=== PATIENT | female | born 1980 | race Caucasian/White ===

== ENCOUNTER → 2016-05-05 | Outpatient (CLI) | payer OTHER ==
[2016-05-05 12:26] LABS: BASO % 0.5 % (0.0-1.0); EOS # 0.1 K/mm3 (0.0-0.50); EOS % 1.3 % (0.0-3.0); LYMPH # 1.8 K/mm3 (1.5-4.5); LYMPH % 16.5 % (24.0-44.0); MEAN CORPUSCULAR HEMOGLOBIN 29.5 pg (27.0-33.0); MEAN CORPUSCULAR HGB CONC 33.7 g/dl (32.0-36.5); MEAN CORPUSCULAR VOLUME 87.7 fl (80.0-96.0); MONO # 0.7 K/mm3 (0.0-0.8); MONO % 7.1 % (0.0-5.0); NEUTROPHILS # 7.2 K/mm3 (1.8-7.7); NEUTROPHILS % 73.3 % (36.0-66.0); RED CELL DISTRIBUTION WIDTH 13.1 % (11.5-14.5); WHITE BLOOD COUNT 9.8 K/mm3 (4.0-10.0)
[2016-05-05 12:58] LABS: ALBUMIN 3.8 GM/DL (3.2-5.2); ALBUMIN/GLOBULIN RATIO 1.19 (1.00-1.93); ALKALINE PHOSPHATASE 92 U/L (45-117); ALT/SGPT 19 U/L (12-78); ANION GAP 10 MEQ/L (8-16); AST/SGOT 13 U/L (15-37); BILIRUBIN,TOTAL 0.2 MG/DL (0.2-1.0); BLOOD UREA NITROGEN 14 MG/DL (7-18); CALCIUM LEVEL 8.8 MG/DL (8.5-10.1); CARBON DIOXIDE LEVEL 27 MEQ/L (21-32); CHLORIDE LEVEL 107 MEQ/L (98-107); CHOLESTEROL LEVEL 126 MG/DL (<200); CREATININE FOR GFR 0.76 MG/DL (0.55-1.02); GLOMERULAR FILTRATION RATE > 60.0 (>60); GLUCOSE, FASTING 103 MG/DL (70-105); POTASSIUM SERUM 4.1 MEQ/L (3.5-5.1); SODIUM LEVEL 144 MEQ/L (136-145); TRIGLYCERIDES LEVEL 123 MG/DL (<150)
== END ==
LOC: M LAB 12:13
PROVIDERS: ATTEND Physician Assistant Medical
DX: Z00.00 Encounter for general adult medical examination without abnormal findings (principal)

== ENCOUNTER → 2016-05-25 | Outpatient (CLI) | payer OTHER ==
--- NOTE | 2016-05-25 11:00 | REP ---
Pelvic ultrasound: History: Left lower quadrant pain, left ovarian cyst. Family history of ovarian cancer. Comparison sonography February 28, 2015. This showed a 2.7 cm cystic area in the left ovary. Findings: Uterine dimensions are 7.9 x 4.1 x 4.9 cm. Endometrial echo is 0.6 cm thick. Bladder june are smooth. No free fluid is seen. There are tiny Nabothian cysts in the cervix. The left ovary has overall dimensions of 4.1 x 3.5 x 3.6 cm. Its Doppler flow was normal and resistive index 0.72. There is a 3.1 x 2.1 x 2.3 cm cyst containing a septation. There is a small somewhat nodular echogenic focus along one wall of the cyst. This echogenic focus measures 4 mm in greatest diameter. The cyst is otherwise simple. There are other small follicle cysts in the left ovary. Right ovary is normal measuring 3.4 x 2.2 x 1.8 cm. Subcentimeter follicle cysts are seen in the right ovary. Impression: 3.1 cm complex cystic lesion left ovary. Otherwise negative pelvic sonography.
== END ==
LOC: M WHC 08:30
PROVIDERS: ATTEND Nurse Practitioner Women's Health
DX: N83.202 Unspecified ovarian cyst, left side (principal)

== ENCOUNTER 2016-10-07 10:46 | Emergency (ER) | payer OTHER ==
[~2016-10-07] VITALS: Ht 177.8 cm; Wt 101.4 kg
[2016-10-07 10:47] VITALS: BP 148/88
[2016-10-07] MEDS ORDERED: PREVTAB2 PO (10:52)
[2016-10-07] MEDS ORDERED: CYCL10TA PO (11:29)
[2016-10-07] MEDS ORDERED: PRED20TA PO (11:29)
== END 2016-10-07 11:34 | disposition home or self-care (01) ==
LOC: M ED 10:46
DX: M46.1 Sacroiliitis, not elsewhere classified (principal); M54.32 Sciatica, left side; N83.209 Unspecified ovarian cyst, unspecified side; Z79.899 Other long term (current) drug therapy

== ENCOUNTER 2017-01-05 09:58 | Emergency (ER) | payer OTHER ==
[~2017-01-05] VITALS: Ht 177.8 cm; Wt 101.4 kg
[~2017-01-05 09:58] MED LIST: CYCL10TA PO; PRED20TA PO; PREVTAB2 PO
[2017-01-05 10:05] VITALS: BP 148/85
== END 2017-01-05 11:40 | disposition home or self-care (01) ==
LOC: M ED 09:58
DX: S30.861A Insect bite (nonvenomous) of abdominal wall, initial encounter (principal); X58.XXXA Exposure to other specified factors, initial encounter; Y92.89 Other specified places as the place of occurrence of the external cause; Y93.89 Activity, other specified; Y99.8 Other external cause status; Z79.3 Long term (current) use of hormonal contraceptives

== ENCOUNTER 2017-03-25 22:23 | Emergency (ER) | payer OTHER ==
[2017-03-26] MEDS: CEPHALEXIN 500 MG CAP PO (02:26)
== END 2017-03-26 02:34 | disposition home or self-care (01) ==
LOC: M ED 22:23
DX: L03.115 Cellulitis of right lower limb (principal); Z79.3 Long term (current) use of hormonal contraceptives
CPT/HCPCS: 73620

== ENCOUNTER → 2017-05-17 | Outpatient (REF) | payer OTHER | LOC: M SFHCWAGY 13:29 | DX: Z12.4 Encounter for screening for malignant neoplasm of cervix (principal) ==

== ENCOUNTER → 2017-06-14 | Outpatient (CLI) | payer OTHER ==
[2017-06-14 09:52] LABS: BASO # 0.1 10^3/uL (0.0-0.2); BASO % 0.7 % (0.0-1.0); EOS # 0.1 10^3/uL (0.0-0.50); EOS % 1.1 % (0.0-3.0); HEMATOCRIT 38.9 % (36.0-47.0); HEMOGLOBIN 12.8 g/dl (12.0-15.5); IMMATURE GRANULOCYTE % 0.3 % (0-3.0); LYMPH # 1.7 10^3/uL (1.5-4.5); LYMPH % 19.2 % (24.0-44.0); MEAN CORPUSCULAR HEMOGLOBIN 28.3 pg (27.0-33.0); MEAN CORPUSCULAR HGB CONC 32.9 g/dl (32.0-36.5); MEAN CORPUSCULAR VOLUME 86.1 fl (80.0-96.0); MONO # 0.7 10^3/uL (0.0-0.8); MONO % 7.6 % (0.0-5.0); NEUTROPHILS # 6.4 10^3/uL (1.8-7.7); NEUTROPHILS % 71.1 % (36.0-66.0); PLATELET COUNT, AUTOMATED 345 10^3/uL (150-450); RED BLOOD COUNT 4.52 10^6/uL (4.00-5.40); RED CELL DISTRIBUTION WIDTH 12.8 % (11.5-14.5)
[2017-06-14 10:15] LABS: ESTIMATED AVERAGE GLUCOSE 100 MG/DL (60-110); HEMOGLOBIN A1c 5.1 %
[2017-06-14 10:25] LABS: ALBUMIN 3.6 GM/DL (3.2-5.2); ALKALINE PHOSPHATASE 78 U/L (45-117); ALT/SGPT 24 U/L (12-78); ANION GAP 4 MEQ/L (8-16); AST/SGOT 14 U/L (7-37); BILIRUBIN,TOTAL 0.3 MG/DL (0.2-1.0); BLOOD UREA NITROGEN 10 MG/DL (7-18); CALCIUM LEVEL 8.6 MG/DL (8.5-10.1); CARBON DIOXIDE LEVEL 28 MEQ/L (21-32); CHLORIDE LEVEL 109 MEQ/L (98-107); CHOLESTEROL LEVEL 117 MG/DL (<200); CHOLESTEROL RISK RATIO 2.543 (<5); CREATININE FOR GFR 0.58 MG/DL (0.55-1.30); FREE T4 1.01 NG/DL (0.76-1.46); GLOMERULAR FILTRATION RATE > 60.0 (>60); GLUCOSE, FASTING 83 MG/DL (70-100); HDL CHOLESTEROL 46 MG/DL (>40); NON-HDL-C 71 MG/DL; POTASSIUM SERUM 4.6 MEQ/L (3.5-5.1); SODIUM LEVEL 141 MEQ/L (136-145); TOTAL PROTEIN 7.2 GM/DL (6.4-8.2); TRIGLYCERIDES LEVEL 70 MG/DL (<150)
[2017-06-14 10:27] LABS: TOTAL 25(OH) VITAMIN D 24.6 NG/ML (30.0-100.0)
== END ==
LOC: M WUC 08:14
DX: E55.9 Vitamin D deficiency, unspecified (principal); F41.1 Generalized anxiety disorder; Z79.899 Other long term (current) drug therapy
CPT/HCPCS: 84443

== ENCOUNTER → 2018-05-13 | Outpatient (REF) | payer OTHER ==
[~2018-05-13] MED LIST changes: +HYDR-3363; +IBUP-1114 PO; +KEFL500C17 PO; +NAPR-885 PO
== END ==
LOC: M SFHCLERA 10:04
PROVIDERS: ATTEND Physician Assistant Medical
DX: J02.9 Acute pharyngitis, unspecified (principal)

== ENCOUNTER → 2018-08-01 | Outpatient (CLI) | payer OTHER | LOC: M SMT 11:03 | PROVIDERS: ATTEND Specialist | DX: Z13.79 Encounter for other screening for genetic and chromosomal anomalies (principal) ==

== ENCOUNTER 2018-11-14 10:58 | Day surgery (SDC) | payer OTHER ==
[~2018-11-14] VITALS: Ht 177.8 cm; Wt 109.3 kg
[~2018-11-14 10:58] MED LIST changes: +HERBAL SUPPLEMENT PO; +LIDOCAINE 1% MDV 20ML VIAL SQ PRN; +LR 1,000 ML IV ONE
[2018-11-14 11:42] LABS: HEMATOCRIT 39.9 % (36.0-47.0); HEMOGLOBIN 12.9 g/dl (12.0-15.5); MEAN CORPUSCULAR HEMOGLOBIN 28.4 pg (27.0-33.0); MEAN CORPUSCULAR HGB CONC 32.3 g/dl (32.0-36.5); MEAN CORPUSCULAR VOLUME 87.7 fl (80.0-96.0); PLATELET COUNT, AUTOMATED 356 10^3/uL (150-450); RED BLOOD COUNT 4.55 10^6/uL (4.00-5.40); WHITE BLOOD COUNT 9.5 10^3/uL (4.0-10.0)
[2018-11-14 11:46] LABS: URINE PREG TEST NEGATIVE (NEGATIVE)
[2018-11-14] MEDS ORDERED: MIDAZOLAM INJ 2 MG/2 ML VIAL (J2250) As Ordered ONE (12:20)
[2018-11-14] MEDS ORDERED: propofoL 200 MG/20 ML VIAL As Ordered ONE (12:20)
[2018-11-14] MEDS ORDERED: ROCURONIUM BROMIDE 50 MG/5 ML VIAL As Ordered ONE (12:20)
[2018-11-14] MEDS ORDERED: fentaNYL 100 MCG/2 ML INJECTION (J3010) As Ordered ONE ×2 (12:20→13:37)
[2018-11-14] MEDS ORDERED: LIDOCAINE 2% INJ 100 MG/5 ML SDV (FOR ANES.) As Ordered ONE (12:20)
[2018-11-14] MEDS ORDERED: BUPIVACAINE HCL 0.25% 30 ML VIAL As Ordered ONE (12:48)
[2018-11-14] MEDS ORDERED: OXYC1TAB23 PO (12:58)
[2018-11-14] MEDS ORDERED: METOCLOPRAMIDE INJ 10MG/2ML VIAL (J2765) As Ordered ONE (13:31)
[2018-11-14] MEDS ORDERED: KETOROLAC 60 MG/2 ML VIAL (J1885) As Ordered ONE (13:31)
[2018-11-14] MEDS ORDERED: SUGAMMADEX SODIUM 500 MG/5 ML VIAL (BRIDION) As Ordered ONE (13:31)
[2018-11-14] MEDS ORDERED: dexameTHASONE 4 MG/ML 1ML VIAL (J1100) As Ordered ONE (13:31)
[2018-11-14] MEDS ORDERED: ONDANSETRON 4MG/2ML VIAL (J2405) As Ordered ONE (13:31)
[2018-11-14] MEDS ORDERED: ONDANSETRON 4MG/2ML VIAL (J2405) IV PRN (14:30)
[2018-11-14] MEDS ORDERED: LR 1,000 ML IV SCH ×2 (14:30)
[2018-11-14] MEDS ORDERED: MEPERIDINE INJ 25 MG/ML VIAL (J2175) IV PRN (14:30)
[2018-11-14] MEDS ORDERED: fentaNYL 100 MCG/2 ML INJECTION (J3010) IV PRN (14:30)
[2018-11-14] MEDS ORDERED: PERCOCET 5MG/325MG TAB PO PRN ×2 (14:30)
[2018-11-14] MEDS ORDERED: METOCLOPRAMIDE INJ 10MG/2ML VIAL (J2765) IV PRN (14:30)
[2018-11-14 15:46] VITALS: BP 132/92
--- NOTE | 2018-11-25 19:17 | RO ---
DATE OF PROCEDURE: 11/14/2018 PREPROCEDURE DIAGNOSIS: Undesired fertility. POSTPROCEDURE DIAGNOSIS: Undesired fertility. PROCEDURE: Laparoscopic bilateral salpingectomy. SURGEON: Manuel Alvarado MD FRINGING MACHINE OPERATOR: ANESTHESIA: General endotracheal. ESTIMATED BLOOD LOSS: 10 mL URINE OUTPUT: 50 mL. FINDINGS: Normal pelvis including uterus, fallopian tubes and ovaries. DESCRIPTION OF PROCEDURE: The patient was taken to the operating room where general endotracheal anesthesia was induced. She was prepped and draped in a sterile fashion in the dorsal lithotomy position. The bladder was emptied with a catheter. A sponge stick was placed in the vagina to use as a manipulator. A periumbilical incision was made with a scalpel. A Veress needle was placed through this incision while tenting up on the skin of the abdomen. Intraabdominal location of the Veress needle was assessed with the use of a saline-filled syringe. A pneumoperitoneum was created. The Veress needle was removed. 5 mm trocar using Visiport was inserted through this incision. Two 5 mm ports were inserted under direct visualization without difficulty. A grasping instrument and Ligasure device were used to elevate the fallopian tubes, tube was then coagulated and incised along its broad ligament attachments. The tube was then excised near its origin. This was done on both sides. Both tubes were removed through the suprapubic ports. Good hemostasis was noted. The pneumoperitoneum was released. All instruments were removed. The skin was closed with #4-0 Monocryl subcuticular sutures. Sponge, instrument and needle counts were correct. [facility]
== END 2018-11-14 15:46 | disposition home or self-care (01) ==
LOC: M SDC 10:58
PROVIDERS: ATTEND Specialist
DX: Z30.2 Encounter for sterilization (principal); F41.9 Anxiety disorder, unspecified
CPT/HCPCS: 36415; 58661; 84703; 85027; 88302; J1100; J1885; J2250; J2405; J2765; J3010

== ENCOUNTER → 2019-01-17 | Outpatient (REF) | payer OTHER ==
[~2019-01-17] MED LIST changes: -LIDOCAINE 1% MDV 20ML VIAL SQ PRN; -LR 1,000 ML IV ONE; +OXYC1TAB23 PO
== END ==
LOC: M SFHCLERA 16:50
PROVIDERS: ATTEND Nurse Practitioner Family
DX: R53.81 Other malaise (principal)

== ENCOUNTER → 2020-03-02 | Outpatient (CLI) | payer OTHER ==
[~2020-03-02] MED LIST changes: +CYCL-707 PO; -CYCL10TA PO
== END ==
LOC: M LABSMTC 14:08
PROVIDERS: ATTEND Family Medicine
DX: Z20.828 Contact with and (suspected) exposure to other viral communicable diseases (principal)

== ENCOUNTER → 2020-05-09 | Outpatient (REF) | payer OTHER ==
[2020-05-09 17:39] LABS: BASO # 0.1 10^3/uL (0.0-0.2); BASO % 0.8 % (0.0-1.0); EOS # 0.2 10^3/uL (0.0-0.5); EOS % 2.1 % (0.0-3.0); HEMATOCRIT 39.8 % (36.0-47.0); HEMOGLOBIN 12.6 g/dl (12.0-15.5); LYMPH # 1.9 10^3/uL (1.5-5.0); LYMPH % 25.1 % (24.0-44.0); MEAN CORPUSCULAR HEMOGLOBIN 28.3 pg (27.0-33.0); MEAN CORPUSCULAR HGB CONC 31.7 g/dl (32.0-36.5); MEAN CORPUSCULAR VOLUME 89.2 fl (80.0-96.0); MONO # 0.6 10^3/uL (0.0-0.8); MONO % 8.4 % (2.0-8.0); NEUTROPHILS # 4.9 10^3/uL (1.5-8.5); NEUTROPHILS % 63.3 % (36.0-66.0); PLATELET COUNT, AUTOMATED 347 10^3/uL (150-450); RED BLOOD COUNT 4.46 10^6/uL (4.00-5.40); WHITE BLOOD COUNT 7.7 10^3/uL (4.0-10.0)
[2020-05-09 17:43] LABS: ALBUMIN 3.9 GM/DL (3.2-5.2); ALT/SGPT 25 U/L (12-78); BILIRUBIN,TOTAL 0.3 MG/DL (0.2-1.0); BLOOD UREA NITROGEN 11 MG/DL (7-18); CARBON DIOXIDE LEVEL 29 MEQ/L (21-32); CHLORIDE LEVEL 104 MEQ/L (98-107); CHOLESTEROL LEVEL 169 MG/DL (<200); CHOLESTEROL RISK RATIO 3.448 (<5); CREATININE FOR GFR 0.64 MG/DL (0.55-1.30); FREE T4 0.98 NG/DL (0.76-1.46); GLOMERULAR FILTRATION RATE > 60.0 (>60); GLUCOSE, FASTING 92 MG/DL (70-100); HDL CHOLESTEROL 49 MG/DL (>40); LDL CHOLESTEROL 102 MG/DL (<100); NON-HDL-C 120 MG/DL; POTASSIUM SERUM 4.7 MEQ/L (3.5-5.1); SODIUM LEVEL 139 MEQ/L (136-145); THYROGLOBULIN ANTIBODY 59.3 U/ML (<60.0); THYROID PEROXIDASE ANTIBODY 132.9 U/ML (<60.0); TOTAL 25(OH) VITAMIN D 18.8 NG/ML (30.0-100.0); TOTAL PROTEIN 7.5 GM/DL (6.4-8.2); TRIGLYCERIDES LEVEL 92 MG/DL (<150)
[2020-05-09 17:46] LABS: HEMOGLOBIN A1c 5.2 %
== END ==
LOC: M LAB REF 16:13
PROVIDERS: ATTEND Physician Assistant
DX: E04.1 Nontoxic single thyroid nodule (principal); E66.9 Obesity, unspecified; R53.83 Other fatigue; I10 Essential (primary) hypertension

== ENCOUNTER → 2020-08-01 | Outpatient (CLI) | payer OTHER ==
--- NOTE | 2020-08-02 04:39 | REP ---
INDICATION: NONTOXIC SINGLE THYROID NODULE COMPARISON: None. TECHNIQUE: Case scale and color evaluation of the thyroid gland using the linear high frequency transducer. FINDINGS: The thyroid gland is diffusely heterogeneous. Right lobe measures 4.3 x 1.5 x 1.5 cm without discrete nodule or cyst. Left lobe measures 4.5 x 1.5 x 1.4 cm and includes 1.6 x 1.3 x 1.0 cm complex lower pole isoechoic vascular nodule. Isthmus measures 4 mm in width. IMPRESSION: 1. 1.6 cm complex lower pole nodule in the left lobe. Finding is relatively indeterminate. FNA may be considered for definitive diagnosis as no prior examinations are available for comparison. <Electronically signed by Heraclio Dasilva > 08/02/20 [id number]
== END ==
LOC: M RAD 11:30
PROVIDERS: ATTEND Physician Assistant
DX: E04.1 Nontoxic single thyroid nodule (principal)

== ENCOUNTER → 2020-11-10 | Outpatient (REF) | payer OTHER | LOC: M LAB REF 19:10 | PROVIDERS: ATTEND Internal Medicine Endocrinology, Diabetes & Metabolism | DX: E04.1 Nontoxic single thyroid nodule (principal) ==

== ENCOUNTER → 2020-11-24 | Outpatient (CLI) | payer OTHER ==
[2020-11-24 13:55] LABS: FREE T4 1.09 NG/DL (0.76-1.46); THYROID STIMULATING HORMONE 1.65 uIU/ML (0.358-3.740)
== END ==
LOC: M WUC 09:15
PROVIDERS: ATTEND Internal Medicine Endocrinology, Diabetes & Metabolism
DX: E06.3 Autoimmune thyroiditis (principal)

== ENCOUNTER → 2021-05-22 | Outpatient (CLI) | payer OTHER ==
[2021-05-22 11:22] LABS: FREE T4 1.17 NG/DL (0.76-1.46); THYROID STIMULATING HORMONE 1.03 uIU/ML (0.358-3.740)
== END ==
LOC: M WUC 08:22
PROVIDERS: ATTEND Internal Medicine Endocrinology, Diabetes & Metabolism
DX: E04.1 Nontoxic single thyroid nodule (principal)

== ENCOUNTER 2021-11-23 16:40 | Emergency (ER) | payer OTHER ==
[~2021-11-23] VITALS: Ht 177.8 cm; Wt 121.1 kg
[2021-11-23] MEDS ORDERED: LEVO75TA4 (16:51)
[2021-11-23] MEDS ORDERED: SULF1TAB23 PO (20:28)
[2021-11-23 20:30] VITALS: BP 145/83
[2021-11-23] MEDS ORDERED: BACTRIM 160MG/800MG DS TAB PO ONE (20:30)
== END 2021-11-23 20:49 | disposition home or self-care (01) ==
LOC: M ED 16:40
DX: L03.116 Cellulitis of left lower limb (principal); E06.3 Autoimmune thyroiditis; Z79.890 Hormone replacement therapy

== ENCOUNTER → 2022-05-03 | Outpatient (CLI) | payer OTHER ==
[~2022-05-03] MED LIST changes: +LEVO75TA4; +SULF1TAB23 PO
[2022-05-03 10:52] LABS: THYROID STIMULATING HORMONE 2.239 uIU/ML (0.55-4.78)
[2022-05-03 10:53] LABS: FREE T4 1.2 NG/DL (0.89-1.76)
== END ==
LOC: M WUC 08:11
PROVIDERS: ATTEND Nurse Practitioner Family
DX: E06.3 Autoimmune thyroiditis (principal)

== ENCOUNTER → 2022-06-19 | Outpatient (REF) | payer OTHER ==
[2022-06-19 18:39] LABS: HEMATOCRIT 40.1 % (36.0-47.0); HEMOGLOBIN 12.9 g/dl (12.0-15.5); MEAN CORPUSCULAR HEMOGLOBIN 28.9 pg (27.0-33.0); MEAN CORPUSCULAR HGB CONC 32.2 g/dl (32.0-36.5); MEAN CORPUSCULAR VOLUME 89.7 fl (80.0-96.0); PLATELET COUNT, AUTOMATED 341 10^3/uL (150-450); RED BLOOD COUNT 4.47 10^6/uL (4.00-5.40)
[2022-06-19 19:18] LABS: ALBUMIN 3.9 G/DL (3.2-5.2); ALKALINE PHOSPHATASE 105 U/L (46-116); ALT/SGPT 16 U/L (7.0-40); AST/SGOT 16 U/L (<34); BILIRUBIN,TOTAL 0.3 MG/DL (0.3-1.2); BLOOD UREA NITROGEN 10 MG/DL (9-23); CALCIUM LEVEL 8.8 MG/DL (8.5-10.1); CARBON DIOXIDE LEVEL 26 MMOL/L (20-31); CHLORIDE LEVEL 106 MMOL/L (98-107); CHOLESTEROL LEVEL 137 MG/DL (<200); CHOLESTEROL RISK RATIO 3.24 (<5); CREATININE FOR GFR 0.63 MG/DL (0.55-1.30); GLOMERULAR FILTRATION RATE > 60.0 (>58); GLUCOSE, FASTING 76 MG/DL (60-100); HDL CHOLESTEROL 42.2 MG/DL (>40); LDL CHOLESTEROL 76.6 MG/DL (<100); NON-HDL-C 94.8 MG/DL; POTASSIUM SERUM 4.4 MMOL/L (3.5-5.1); SODIUM LEVEL 134 MMOL/L (136-145); TOTAL 25(OH) VITAMIN D 39.5 NG/ML (20.0-100.0); TOTAL PROTEIN 7.1 G/DL (5.7-8.2); TRIGLYCERIDES LEVEL 91 MG/DL (<150)
== END ==
LOC: M LAB REF 16:24
PROVIDERS: ATTEND Physician Assistant
DX: I10 Essential (primary) hypertension (principal); E55.9 Vitamin D deficiency, unspecified

== ENCOUNTER → 2022-07-04 | Outpatient (CLI) | payer OTHER | LOC: M WHC 10:54 | PROVIDERS: ATTEND Physician Assistant | DX: Z12.31 Encounter for screening mammogram for malignant neoplasm of breast (principal) ==

== ENCOUNTER → 2022-08-30 | Outpatient (REF) | payer OTHER ==
[2022-08-30 16:56] LABS: BLOOD UREA NITROGEN 9 MG/DL (9-23); CALCIUM LEVEL 9.7 MG/DL (8.5-10.1); CARBON DIOXIDE LEVEL 28 MMOL/L (20-31); CHLORIDE LEVEL 103 MMOL/L (98-107); CREATININE FOR GFR 0.67 MG/DL (0.55-1.30); GLOMERULAR FILTRATION RATE > 60.0 (>58); GLUCOSE, FASTING 59 MG/DL (60-100); POTASSIUM SERUM 4.1 MMOL/L (3.5-5.1); SODIUM LEVEL 138 MMOL/L (136-145)
== END ==
LOC: M LAB REF 16:09
PROVIDERS: ATTEND Physician Assistant
DX: I10 Essential (primary) hypertension (principal)

== ENCOUNTER 2022-12-20 06:09 | Day surgery (SDC) | payer OTHER ==
[~2022-12-20] VITALS: Ht 152.4 cm; Wt 117.9 kg
[~2022-12-20 06:09] MED LIST changes: +ALEV220T22 PO; +BUPR300T92 PO; +CEPH500C PO; -LEVO75TA4; +LEVO75TA4 PO; +LISI10TA22 PO
[2022-12-20] MEDS ORDERED: LR 1,000 ML IV SCH ×2 (06:25→08:40)
[2022-12-20] MEDS ORDERED: propofoL 200 MG/20 ML VIAL As Ordered ONE (07:09)
[2022-12-20] MEDS ORDERED: MIDAZOLAM INJ 2MG/2ML VIAL As Ordered ONE (07:09)
[2022-12-20] MEDS ORDERED: ROCURONIUM BROMIDE 50MG/5ML VIAL As Ordered ONE (07:09)
[2022-12-20] MEDS ORDERED: fentaNYL 250 MCG/5 ML INJECTION As Ordered ONE (07:09)
[2022-12-20] MEDS ORDERED: LIDOCAINE 2% 100MG/5ML SDV (FOR ANES.) As Ordered ONE (07:09)
[2022-12-20] MEDS ORDERED: ONDANSETRON 4MG 2ML VIAL As Ordered ONE (08:04)
[2022-12-20] MEDS ORDERED: METOCLOPRAMIDE INJ 10MG/2ML VIAL As Ordered ONE (08:04)
[2022-12-20] MEDS ORDERED: SUGAMMADEX SODIUM 500 MG/5 ML VIAL (BRIDION) As Ordered ONE (08:04)
[2022-12-20] MEDS ORDERED: ACETAMINOPHEN 1000MG 100ML IV BAG As Ordered ONE (08:04)
[2022-12-20] MEDS ORDERED: KETOROLAC 60MG 2ML VIAL As Ordered ONE (08:04)
[2022-12-20] MEDS ORDERED: ONDANSETRON 4MG 2ML VIAL IV PRN (08:40)
[2022-12-20] MEDS ORDERED: fentaNYL 100 MCG/2 ML INJECTION IV PRN (08:40)
[2022-12-20] MEDS ORDERED: oxyCODONE 5MG TAB PO PRN (08:40)
[2022-12-20] MEDS: HYDROMORPHONE HCL 0.5 MG/ 0.5 ML SYRINGE IV PRN ×4 (09:08→09:26)
[2022-12-20] MEDS ORDERED: NORCO, ANEXSIA 5/325MG TABLET (HYDROcodone/ACETAMINOPHEN) PO PRN (09:30)
[2022-12-20 11:30] VITALS: BP 142/86; TEMP 97.1; O2SAT 97
== END 2022-12-20 11:30 | disposition home or self-care (01) ==
LOC: M SDC 06:09
PROVIDERS: ATTEND Surgery
DX: K80.20 Calculus of gallbladder without cholecystitis without obstruction (principal); I10 Essential (primary) hypertension; E03.9 Hypothyroidism, unspecified; G47.33 Obstructive sleep apnea (adult) (pediatric); Z87.891 Personal history of nicotine dependence; Z79.899 Other long term (current) drug therapy; Z79.890 Hormone replacement therapy
CPT/HCPCS: 47562; 88304; J0131; J0665; J1100; J1170; J1885; J2250; J2405; J2765; J3010; S2900

== ENCOUNTER → 2023-06-21 | Outpatient (CLI) | payer OTHER ==
[2023-06-21 10:36] LABS: HEMATOCRIT 38.1 % (36.0-47.0); HEMOGLOBIN 12.3 g/dl (12.0-15.5); MEAN CORPUSCULAR HEMOGLOBIN 29.5 pg (27.0-33.0); MEAN CORPUSCULAR HGB CONC 32.3 g/dl (32.0-36.5); MEAN CORPUSCULAR VOLUME 91.4 fl (80.0-96.0); PLATELET COUNT, AUTOMATED 362 10^3/uL (150-450); RED BLOOD COUNT 4.17 10^6/uL (4.00-5.40); WHITE BLOOD COUNT 9.5 10^3/uL (4.0-10.0)
[2023-06-21 11:14] LABS: ALBUMIN 3.5 G/DL (3.2-5.2); ALKALINE PHOSPHATASE 108 U/L (46-116); ALT/SGPT 17 U/L (7.0-40); AST/SGOT 16 U/L (<34); BILIRUBIN,TOTAL 0.3 MG/DL (0.3-1.2); BLOOD UREA NITROGEN 15 MG/DL (9-23); CALCIUM LEVEL 9.3 MG/DL (8.5-10.1); CARBON DIOXIDE LEVEL 30 MMOL/L (20-31); CHLORIDE LEVEL 104 MMOL/L (98-107); CHOLESTEROL LEVEL 139 MG/DL (<200); CHOLESTEROL RISK RATIO 3.17 (<5); CREATININE FOR GFR 0.71 MG/DL (0.55-1.30); GLOMERULAR FILTRATION RATE > 60.0 (>58); GLUCOSE, FASTING 87 MG/DL (60-100); HDL CHOLESTEROL 43.8 MG/DL (>40); NON-HDL-C 95.2 MG/DL; POTASSIUM SERUM 4.2 MMOL/L (3.5-5.1); SODIUM LEVEL 136 MMOL/L (136-145); TOTAL PROTEIN 6.8 G/DL (5.7-8.2); TRIGLYCERIDES LEVEL 91 MG/DL (<150)
[2023-06-21 11:16] LABS: TOTAL 25(OH) VITAMIN D 23.5 NG/ML (20.0-100.0)
== END ==
LOC: M WUC 08:21
PROVIDERS: ATTEND Physician Assistant
DX: I10 Essential (primary) hypertension (principal); E55.9 Vitamin D deficiency, unspecified

== ENCOUNTER 2023-07-24 03:51 | Emergency (ER) | payer OTHER ==
[~2023-07-24] VITALS: Ht 177.8 cm; Wt 116.6 kg
[~2023-07-24 03:51] MED LIST changes: +BUPR-597 PO; -BUPR300T92 PO
[2023-07-24 05:48] LABS: BASO # 0.1 10^3/uL (0.0-0.2); BASO % 0.7 % (0.0-1.0); EOS # 0.1 10^3/uL (0.0-0.5); EOS % 0.7 % (0.0-3.0); HEMATOCRIT 36.8 % (36.0-47.0); HEMOGLOBIN 12.3 g/dl (12.0-15.5); LYMPH # 1.7 10^3/uL (1.5-5.0); LYMPH % 16.7 % (24.0-44.0); MEAN CORPUSCULAR HEMOGLOBIN 29.9 pg (27.0-33.0); MEAN CORPUSCULAR HGB CONC 33.4 g/dl (32.0-36.5); MEAN CORPUSCULAR VOLUME 89.5 fl (80.0-96.0); MONO # 0.7 10^3/uL (0.0-0.8); MONO % 6.6 % (2.0-8.0); NEUTROPHILS # 7.4 10^3/uL (1.5-8.5); NEUTROPHILS % 74.9 % (36.0-66.0); PLATELET COUNT, AUTOMATED 312 10^3/uL (150-450); RED BLOOD COUNT 4.11 10^6/uL (4.00-5.40); WHITE BLOOD COUNT 9.9 10^3/uL (4.0-10.0)
[2023-07-24 06:12] LABS: LIPASE 31 U/L (12-53)
[2023-07-24 06:14] LABS: ALBUMIN 3.8 G/DL (3.2-5.2); ALKALINE PHOSPHATASE 103 U/L (46-116); ALT/SGPT 27 U/L (7.0-40); AST/SGOT 31 U/L (<34); BILIRUBIN,DIRECT < 0.1 MG/DL (<0.4); BILIRUBIN,TOTAL 0.3 MG/DL (0.3-1.2); BLOOD UREA NITROGEN 14 MG/DL (9-23); CALCIUM LEVEL 8.8 MG/DL (8.5-10.1); CARBON DIOXIDE LEVEL 24 MMOL/L (20-31); CHLORIDE LEVEL 105 MMOL/L (98-107); CREATININE FOR GFR 0.74 MG/DL (0.55-1.30); GLOMERULAR FILTRATION RATE > 60.0 (>58); GLUCOSE, FASTING 126 MG/DL (60-100); POTASSIUM SERUM 5.2 MMOL/L (3.5-5.1); SODIUM LEVEL 137 MMOL/L (136-145)
[2023-07-24 06:22] LABS: HCG, SERUM QUALITATIVE NEGATIVE (NEGATIVE)
[2023-07-24] MEDS: ONDANSETRON 4MG 2ML VIAL IV ONE (06:43)
[2023-07-24] MEDS: KETOROLAC 30 MG/ML 1ML VIAL IV ONE (06:43)
[2023-07-24] MEDS: NS 1,000 ML IV ONE (06:44)
[2023-07-24] MEDS ORDERED: ISOVUE-370 76% 100ML VIAL As Ordered ONE (07:08)
[2023-07-24] MEDS: MORPHINE 4 MG/ML 1ML VIAL IV ONE (07:59)
[2023-07-24] MEDS ORDERED: IBUP-1022 PO (09:22)
[2023-07-24] MEDS ORDERED: PERC5TAB12 PO (09:22)
[2023-07-24] MEDS ORDERED: FLOM0.4C39 PO (09:22)
[2023-07-24 09:41] VITALS: BP 130/74; TEMP 97.4; O2SAT 94
== END 2023-07-24 09:44 | disposition home or self-care (01) ==
LOC: M ED 03:51
DX: N23 Unspecified renal colic (principal); N13.30 Unspecified hydronephrosis; N83.201 Unspecified ovarian cyst, right side; I10 Essential (primary) hypertension; E06.3 Autoimmune thyroiditis; Z79.1 Long term (current) use of non-steroidal anti-inflammatories (NSAID); Z79.899 Other long term (current) drug therapy
CPT/HCPCS: 74177; 76830; 76856; 80048; 80076; 81001; 83690; 84703; 85025; 86304; 87086; 93041; 94760; 96361; 96374; 96375; 99284; J1885; J2405; Q9967

== ENCOUNTER → 2023-07-31 | Outpatient (CLI) | payer OTHER ==
[~2023-07-31] MED LIST changes: +FLOM0.4C39 PO; +IBUP-1022 PO; +PERC5TAB12 PO
== END ==
LOC: M WHC 13:27
PROVIDERS: ATTEND Physician Assistant
DX: Z12.31 Encounter for screening mammogram for malignant neoplasm of breast (principal)

== ENCOUNTER 2023-08-16 12:23 | Day surgery (SDC) | payer OTHER ==
[~2023-08-16] VITALS: Ht 177.8 cm; Wt 116.1 kg
[~2023-08-16 12:23] MED LIST changes: +CLAR10CA3 PO
[2023-08-16 13:00] LABS: HEMATOCRIT 38.5 % (36.0-47.0); MEAN CORPUSCULAR HEMOGLOBIN 29.5 pg (27.0-33.0); MEAN CORPUSCULAR HGB CONC 33.8 g/dl (32.0-36.5); MEAN CORPUSCULAR VOLUME 87.5 fl (80.0-96.0); PLATELET COUNT, AUTOMATED 342 10^3/uL (150-450); WHITE BLOOD COUNT 10.6 10^3/uL (4.0-10.0)
[2023-08-16] MEDS ORDERED: LR 1,000 ML IV SCH ×2 (13:00→15:50)
[2023-08-16] MEDS ORDERED: ONDANSETRON 4MG 2ML VIAL As Ordered ONE (13:34)
[2023-08-16] MEDS ORDERED: fentaNYL 100 MCG/2 ML INJECTION As Ordered ONE (13:34)
[2023-08-16] MEDS ORDERED: propofoL 200 MG/20 ML VIAL As Ordered ONE (13:34)
[2023-08-16] MEDS ORDERED: LIDOCAINE 2% 100MG/5ML SDV (FOR ANES.) As Ordered ONE (13:34)
[2023-08-16] MEDS ORDERED: MIDAZOLAM INJ 2MG/2ML VIAL As Ordered ONE (13:34)
[2023-08-16] MEDS ORDERED: ROCURONIUM BROMIDE 50MG/5ML VIAL As Ordered ONE (13:34)
[2023-08-16] MEDS: METHYLENE BLUE 0.5% (5MG/ML) 10 ML AMP (PROVAYBLUE) As Ordered ONE (13:39)
[2023-08-16] MEDS: ceFAZolin SOD 2 GM in IV 1 EA IV ONE (13:42)
[2023-08-16] MEDS ORDERED: ACETAMINOPHEN 1000MG 100ML IV BAG As Ordered ONE (14:09)
[2023-08-16] MEDS ORDERED: KETOROLAC 60MG 2ML VIAL As Ordered ONE (15:06)
[2023-08-16] MEDS ORDERED: dexmedeTOMIDine (4MCG/ML)200MCG/50ML BTL (PRECEDEX) As Ordered ONE (15:09)
[2023-08-16] MEDS ORDERED: SUGAMMADEX SODIUM 500 MG/5 ML VIAL (BRIDION) As Ordered ONE (15:12)
[2023-08-16] MEDS: SILVER NITRATE APPLICATOR (1 = QTY 10) As Ordered ONE (15:43)
[2023-08-16] MEDS ORDERED: HYDROMORPHONE HCL 0.5 MG/ 0.5 ML SYRINGE IV PRN (15:50)
[2023-08-16] MEDS ORDERED: fentaNYL 100 MCG/2 ML INJECTION IV PRN (15:50)
[2023-08-16] MEDS ORDERED: ONDANSETRON 4MG 2ML VIAL IV PRN (15:50)
[2023-08-16] MEDS ORDERED: oxyCODONE 5MG TAB PO PRN (15:50)
[2023-08-16] MEDS ORDERED: OXYC1TAB23 PO (16:13)
[2023-08-16] MEDS ORDERED: IBUP1TAB7 PO (16:15)
[2023-08-16] MEDS ORDERED: ONDA-282 PO (16:16)
[2023-08-16 17:10] VITALS: BP 117/63; TEMP 96.9; O2SAT 99
== END 2023-08-16 17:23 | disposition home or self-care (01) ==
LOC: M SDC 12:23
PROVIDERS: ATTEND Obstetrics & Gynecology
DX: D27.1 Benign neoplasm of left ovary (principal); I10 Essential (primary) hypertension; E06.3 Autoimmune thyroiditis; F41.9 Anxiety disorder, unspecified; Z87.442 Personal history of urinary calculi; Z79.899 Other long term (current) drug therapy; Z79.890 Hormone replacement therapy
CPT/HCPCS: 36415; 58661; 81025; 85027; 86850; 86900; 86901; 88307; J0131; J0665; J0690; J1100; J1885; J2250; J2405; J3010; Q9968; S2900

== ENCOUNTER → 2023-12-03 | Outpatient (REF) | payer OTHER ==
[~2023-12-03] MED LIST changes: +IBUP1TAB7 PO; +ONDA-282 PO
[2023-12-03 20:09] LABS: BLOOD UREA NITROGEN 10 MG/DL (9-23); CALCIUM LEVEL 8.7 MG/DL (8.5-10.1); CARBON DIOXIDE LEVEL 25 MMOL/L (20-31); CHLORIDE LEVEL 106 MMOL/L (98-107); CREATININE FOR GFR 0.64 MG/DL (0.55-1.30); GLOMERULAR FILTRATION RATE > 60.0 (>58); GLUCOSE, FASTING 80 MG/DL (60-100); POTASSIUM SERUM 4.2 MMOL/L (3.5-5.1); SODIUM LEVEL 137 MMOL/L (136-145)
== END ==
LOC: M LAB REF 16:38
PROVIDERS: ATTEND Physician Assistant
DX: I10 Essential (primary) hypertension (principal)

== ENCOUNTER → 2023-12-17 | Outpatient (CLI) | payer OTHER | LOC: M WHC 14:31 | PROVIDERS: ATTEND Physician Assistant | DX: Z12.31 Encounter for screening mammogram for malignant neoplasm of breast (principal) ==

== ENCOUNTER → 2024-03-25 | Outpatient (REF) | payer OTHER | LOC: M LAB REF 16:11 | PROVIDERS: ATTEND Physician Assistant | DX: J02.9 Acute pharyngitis, unspecified (principal) ==

== ENCOUNTER → 2024-12-31 | Outpatient (REF) | payer OTHER ==
[~2024-12-31] MED LIST changes: -BUPR-597 PO; +BUPR-766 PO; -FLOM0.4C39 PO; -IBUP-1022 PO; +IBUP600T42 PO; +TAMS-18 PO
== END ==
LOC: M LAB REF 17:02
PROVIDERS: ATTEND Nurse Practitioner Family
DX: E03.9 Hypothyroidism, unspecified (principal)